=== PATIENT | female | born 1990 | race American Indian/Alaskan Native ===

== ENCOUNTER 2017-08-21 00:43 | Emergency (ER) | payer MEDICAID ==
[2017-08-21] MEDS ORDERED: ZOFRAN IV ONE (02:00)
[2017-08-21] MEDS ORDERED: ZOFRAN ONE (02:00)
[2017-08-21 02:27] LABS: Basophils % (Auto) 0.2 % (0.0-1.8); Hematocrit 37.8 % (30.3-42.9); Hemoglobin 12.3 gm/dl (10.1-14.3); Lymphocytes # (Auto) 0.9 K/mm3 (1.2-5.4); Lymphocytes % (Auto) 7.6 % (13.4-35.0); Mean Corpuscular HGB Conc 33 % (30-34); Mean Corpuscular Volume 79 fl (79-97); Monocytes # (Auto) 0.4 K/mm3 (0.0-0.8); Monocytes % (Auto) 3.5 % (0.0-7.3); Platelet Count 398 K/mm3 (140-440); Red Blood Count 4.78 M/mm3 (3.65-5.03); Red Cell Distribution Width 17.9 % (13.2-15.2)
[2017-08-21 02:38] LABS: Alanine Aminotransferase 10 units/L (7-56); Albumin 4.6 g/dL (3.9-5); BUN/Creatinine Ratio 18; Blood Urea Nitrogen 9 mg/dL (7-17); Calcium 9.8 mg/dL (8.4-10.2); Hemolysis Index 5
[2017-08-21 02:51] LABS: Mean Corpuscular Hemoglobin 26 pg (28-32)
[2017-08-21] MEDS ORDERED: NACL 0.9% 1000 ML 1,000 ML IV ONE (02:56)
[2017-08-21] MEDS ORDERED: MORPHINE IV ONE (02:59)
--- NOTE | 2017-08-21 02:59 | Emergency Department Report ---
ED Abdominal Pain HPI - General Chief Complaint: Abdominal Pain Stated Complaint: ABD PAIN Time Seen by Provider: 08/21/17 02:55 Source: patient Mode of arrival: Ambulatory Limitations: No Limitations - History of Present Illness Initial Comments: Daylin is a 27 yo female brought by EMS. Central epigastric pain at site of old surgical incision. She had an unknown surgery as a child. Severe sharp pain, very tender to touch. MD Complaint: abdominal pain -: Gradual Location: epigastric Radiation: back Severity: severe Quality: cramping Consistency: constant Improves With: nothing Worsens With: nothing, movement Associated Symptoms: nausea, vomiting - Related Data Previous Rx's Medication Instructions Recorded Last Taken Type Nitrofurantoin Macrocrystal 100 mg PO BID 10 Days #20 capsule 08/21/17 Unknown Rx [Nitrofurantoin] Allergies Allergy/AdvReac Type Severity Reaction Status Date / Time shellfish derived Allergy Swelling Verified 08/21/17 01:54 ED Review of Systems ROS: Stated complaint: ABD PAIN Other details as noted in HPI Comment: All other systems reviewed and negative Constitutional: denies: fever, malaise Gastrointestinal: abdominal pain, nausea, vomiting ED Past Medical Hx - Past Medical History Previous Medical History?: No - Surgical History Past Surgical History?: No - Social History Smoking Status: Former Smoker Substance Use Type: None - Medications Home Medications: Home Medications Medication Instructions Recorded Confirmed Last Taken Type Nitrofurantoin Macrocrystal 100 mg PO BID 10 Days #20 capsule 08/21/17 Unknown Rx [Nitrofurantoin] ED Physical Exam - General Limitations: No Limitations General appearance: alert, in no apparent distress - Head Head exam: Present: atraumatic, normocephalic - Eye Eye exam: Present: normal appearance - ENT ENT exam: Present: mucous membranes moist - Neck Neck exam: Present: normal inspection. Absent: tenderness, meningismus - Respiratory Respiratory exam: Present: normal lung sounds bilaterally. Absent: respiratory distress, wheezes, rales, rhonchi - Cardiovascular Cardiovascular Exam: Present: regular rate, normal rhythm, normal heart sounds. Absent: systolic murmur, diastolic murmur, rubs, gallop - GI/Abdominal GI/Abdominal exam: Present: soft, tenderness, guarding, other (old central surgical scar). Absent: distended, rebound - Extremities Exam Extremities exam: Present: normal inspection - Back Exam Back exam: Present: normal inspection - Neurological Exam Neurological exam: Present: alert, oriented X3 - Psychiatric Psychiatric exam: Present: normal affect, normal mood - Skin Skin exam: Present: warm, dry, intact, normal color. Absent: rash ED Course Vital Signs 08/21/17 01:54 Temperature 97.3 F L Pulse Rate 58 L Respiratory 18 Rate Blood Pressure 90/50 O2 Sat by Pulse 100 Oximetry ED Medical Decision Making - Lab Data Result diagrams: 08/21/17 02:10 08/21/17 02:10 - Radiology Data Radiology results: report reviewed 6 week intrauterine estimated date of conception 04/13/2018 - Medical Decision Making Ms. Lara presents with abdominal pain. No evidence of peritonitis. She does have new diagnosis of . No indication of ectopic. She appears comfortable. Ambulatory no difficulty. I have provided nitrofurantoin for possible UTI. Critical care attestation.: If time is entered above; I have spent that time in minutes in the direct care of this critically ill patient, excluding procedure time. ED Disposition Clinical Impression: , Abdominal pain, UTI (urinary tract infection) Disposition: PAT REG,NO TRIAGE Is pt being admited?: No Does the pt Need Aspirin: No Condition: Stable Instructions: (ED), Urinary Tract Infection in Women (ED) Additional Instructions: Your due date is 04/13/2018 Prescriptions: Nitrofurantoin Macrocrystal [Nitrofurantoin] 100 mg PO BID 10 Days #20 capsule Referrals: PRIMARY CAREMD [Primary Care Provider] - 3-5 Days BO RODRIGUEZ MD [Staff Physician] - 3-5 Days Time of Disposition: 05:13
[2017-08-21 03:37] LABS: HCG Qualitative,Urine Positive (Negative)
[2017-08-21 03:41] LABS: Bacteria,Urine 1+ /HPF (Negative); Bilirubin,Urine NEG (Negative); Blood,Urine NEG (Negative); Color,Urine Yellow (Yellow); Mucus,Urine 2+ /HPF; Urobilinogen,Urine < 2.0 mg/dL (<2.0)
--- NOTE | 2017-08-21 05:06 | Ultrasound Report ---
FINAL REPORT PROCEDURE: US OB < = 14 WK FETUS ADD GEST TECHNIQUE: Real-time transabdominal sonography of the uterus, placenta, amniotic fluid, adnexa, and fetus was performed with image documentation. Measurements were obtained to determine age/size. M-mode Doppler was used to document heartbeat. CPT 69303 HISTORY: abdominal pain COMPARISON: No prior studies are available for comparison. FINDINGS: CRL: 6 mm, which corresponds to a gestational age of: 6 weeks, 3 days. Yolk Sac: Normal. Embryonic Cardiac Activity: 77 beats per minute Gestational Sac: There is a subchorionic bleed identified. This measures up to 13 millimeters Amniotic fluid: Normal. Cervix: Normal. Right Ovary: Normal. Left Ovary: Normal. Estimated delivery date: 04/12/2018 Uterus and adnexa: Normal. IMPRESSION: Single live intrauterine gestation at approximately 6 weeks 3 days. EDC by US 04/12/2018
--- NOTE | 2017-08-21 05:07 | Ultrasound Report ---
FINAL REPORT PROCEDURE: US OB TRANSVAGINAL TECHNIQUE: Real-time transvaginal sonography of the uterus, placenta, amniotic fluid, adnexa, and fetus was performed with image documentation. Measurements were obtained to determine age/size. M-mode Doppler was used to document heartbeat. CPT 37291 HISTORY: abdominal pain COMPARISON: No prior studies are available for comparison. FINDINGS: CRL: 6mm, which corresponds to a gestational age of: 6weeks, 3 days. Yolk Sac: Normal. Embryonic Cardiac Activity: 77 beats per minute Gestational Sac: Normal. Right Ovary: Normal. Left Ovary: Normal. Estimated delivery date: 04/13/2018 Comment: Complete anatomic survey at 18-20 weeks suggested. IMPRESSION: 1. Single living intrauterine gestation at approximately 6 weeks 3 days 2. EDC by US 04/13/2018.
[2017-08-21 06:01] VITALS: BP 94/45
== END 2017-08-21 06:01 | disposition left against medical advice (07) ==
LOC: ED 00:43
DX: O23.41 Unspecified infection of urinary tract in pregnancy, first trimester (principal); R10.13 Epigastric pain; Z3A.01 Less than 8 weeks gestation of pregnancy
CPT/HCPCS: 36415; 76801; 76817; 80053; 81001; 81025; 84702; 85025; 96361; 96374; 96375; 99284; J2270; J2405; J7030; 76802